=== PATIENT | male | born 1940 | race Caucasian/White ===

== ENCOUNTER 2019-02-16 11:46 | Day surgery (SDC) | payer BC, MEDICARE ==
[~2019-02-16] VITALS: Ht 182.9 cm; Wt 145.4 kg
[2019-02-16 14:08] VITALS: BP 151/60
[2019-02-16] MEDS ORDERED: SODIUM CHLORIDE 0.9% 1,000 ML IV SCH ×2 (14:30→15:54)
[2019-02-16] MEDS ORDERED: DIPHENHYDRAMINE 50 MG/ML, 1ML IVPush ONE (14:30)
[2019-02-16] MEDS ORDERED: METF500T17 PO (14:32)
[2019-02-16] MEDS ORDERED: LEVO200T5 PO ×2 (14:32)
[2019-02-16] MEDS ORDERED: WARF-36 PO (14:32)
[2019-02-16] MEDS ORDERED: POTA20TA89 PO ×3 (14:32)
[2019-02-16] MEDS ORDERED: WARF10TA43 PO (14:32)
[2019-02-16] MEDS ORDERED: ATOR20TA37 PO (14:32)
[2019-02-16] MEDS ORDERED: FURO40TA6 PO (14:32)
[2019-02-16] MEDS ORDERED: FURO20TA3 PO (14:32)
[2019-02-16] MEDS ORDERED: DOFE500C PO (14:32)
[2019-02-16] MEDS ORDERED: VERAPAMIL 2.5 MG/ML, 2ML ONE (14:44)
[2019-02-16] MEDS ORDERED: MIDAZOLAM 1 MG/ML, 5ML ONE (14:44)
[2019-02-16] MEDS ORDERED: FENTANYL PF 100 MCG/2ML ONE (14:44)
[2019-02-16] MEDS ORDERED: HEPARIN 1,000 UNITS/ML, 10ML ONE (14:44)
[2019-02-16] MEDS ORDERED: LIDOCAINE-MPF 1%, 5ML ONE (14:44)
[2019-02-16] MEDS ORDERED: DIPHENHYDRAMINE 50 MG/ML, 1ML ONE (14:54)
[2019-02-16 15:29] LABS: INTERNATIONAL NORMALIZED RATIO 1.02 (0.93-1.1); PROTHROMBIN TIME 10.7 Seconds (9.6-11.5)
== END 2019-02-16 17:02 | disposition home or self-care (01) ==
LOC: CACL 11:46
PROVIDERS: ATTEND Internal Medicine Cardiovascular Disease
DX: R06.02 Shortness of breath (principal); I25.10 Atherosclerotic heart disease of native coronary artery without angina pectoris; I25.83 Coronary atherosclerosis due to lipid rich plaque; I48.0 Paroxysmal atrial fibrillation; I42.0 Dilated cardiomyopathy; I10 Essential (primary) hypertension; E11.9 Type 2 diabetes mellitus without complications; E78.2 Mixed hyperlipidemia; G47.30 Sleep apnea, unspecified; E66.3 Overweight; Z68.41 Body mass index [BMI] 40.0-44.9, adult; Z79.01 Long term (current) use of anticoagulants; Z79.890 Hormone replacement therapy; Z79.84 Long term (current) use of oral hypoglycemic drugs; Z79.899 Other long term (current) drug therapy; Z87.891 Personal history of nicotine dependence
CPT/HCPCS: 36415; 85610; 93456; 99156; 99157; C1769; C1894; J1200; J1644; J2250; J3010; Q9967

== ENCOUNTER → 2019-02-28 | Outpatient (CLI) | payer BC, MEDICARE ==
[~2019-02-28] MED LIST: ATOR20TA37 PO; DOFE500C PO; FURO20TA3 PO; FURO40TA6 PO; LEVO200T5 PO; METF500T17 PO; POTA20TA89 PO; WARF-36 PO; WARF10TA43 PO
== END | disposition home or self-care (01) ==
LOC: RAD 13:31
PROVIDERS: ATTEND Internal Medicine Cardiovascular Disease
DX: R06.02 Shortness of breath (principal)
CPT/HCPCS: 78582 ×2; A9540; A9558